=== PATIENT | male | born 1950 | race Caucasian/White ===

== ENCOUNTER 2017-01-22 09:33 | Outpatient (CLI) | payer MEDICARE, BC ==
--- NOTE | 2017-01-22 14:27 | MRI ---
MRI BRAIN NONCONTRAST: HISTORY: 66-year-old male with R46.89 behavioral change. FINDINGS: The ventricles are normal in size and configuration. There is no restricted diffusion, midline shift or any other mass effect, recent intraaxial hemorrhage, or extraaxial fluid collection. 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 On the FLAIR sequence, t here is an approximately 0.8 x 1.8 cm focally heterogeneously hyperintense lesion in the left frontal bone, in the marrow cavity, mildly focally expanding that portion of the bone. It is inconspicuous a nd difficult to distinguish from the contralateral right frontal bone on the T2 WI and T1 WI, mainly because it is hyperintense on those sequences, the same as normal fatty bone marrow signal. However, this lesion is conspicuous on the FLAIR sequence. There appear to be trabecular markings within this that suggests that it could be a hemangioma of bone (venous malformation of bone). It does not violat e the anterior or posterior cortical bone. It causes magnetic susceptibility artifact, as demonstrate d on the SWI sequence and the diffusion weighted sequence (DWI). IMPRESSION: 1. Mild chronic ischemic white matter changes. 2. Otherwise negative. 3. Intraosseous lesion within the marrow cavity of the left frontal bone. This is favored to be a risa ign entity such as a hemangioma of bone with atypical signal characteristic. Paget's disease, fibrous dysplasia, and metastatic lesions are the other, less likely possibilities. Recommend further evalua tion with Nuclear Medicine whole body bone scan to further evaluate this particular lesion and to [facility] [place] [facility] for any potential other lesions remotely elsewhere in the skeleton. Also, a noncontrast CT of e brain may be useful. skip POS: DINH
== END 2017-01-22 09:34 | disposition home or self-care (01) ==
LOC: TBSIIMAG 09:33
PROVIDERS: ATTEND Psychiatry & Neurology Neurology
DX: R46.89 Other symptoms and signs involving appearance and behavior (principal); M89.9 Disorder of bone, unspecified; I67.82 Cerebral ischemia
CPT/HCPCS: 70551

== ENCOUNTER 2017-02-27 08:31 | Outpatient (CLI) | payer MEDICARE, BC ==
--- NOTE | 2017-02-27 14:12 | NM ---
WHOLE BODY BONE SCAN: HISTORY: A 66-year-old male with disorder of bone, unspecified. Frontal bone lesion found on the MRI brain on 01/22/2017. COMPARISON: Bone scan dated 02/01/2016. CORRELATION: MRI brain without contrast dated 01/22/2017. RADIOPHARMACEUTICAL: Technetium 99m MDP 33 millicuries injected intravenously. FINDINGS: Degenerative changes are seen in the shoulders, acromioclavicular joints, elbows, wrists, knees, ankl es, and feet. Increased uptake in the sternum was seen on the previous exam and is consistent with a history of a previous fracture. No other abnormal areas of tracer localization are see, including t he left frontal bone. There are postop changes of left hip arthroplasty. Foci of mildly increased u ptake in the lumbar spine are also consistent with degenerative changes. Tracer excretion through th e kidneys is within normal limits. IMPRESSION: No evidence of osseous metastatic disease. POS: DINH
== END 2017-02-27 08:32 | disposition home or self-care (01) ==
LOC: NM 08:31
PROVIDERS: ATTEND Psychiatry & Neurology Neurology
DX: M89.9 Disorder of bone, unspecified (principal)
CPT/HCPCS: 78306; A9503

== ENCOUNTER 2017-05-16 08:26 | Outpatient (CLI) | payer MEDICARE, BC ==
[2017-05-16] MEDS ORDERED: Iopamidol 370 76% 100 ML VIAL ONE (10:05)
== END 2017-05-16 08:27 | disposition home or self-care (01) ==
LOC: BICCT 08:26
PROVIDERS: ATTEND Internal Medicine Gastroenterology
DX: K57.92 Diverticulitis of intestine, part unspecified, without perforation or abscess without bleeding (principal); K59.00 Constipation, unspecified; K57.30 Diverticulosis of large intestine without perforation or abscess without bleeding; D18.03 Hemangioma of intra-abdominal structures
CPT/HCPCS: 74177

== ENCOUNTER 2018-10-16 16:32 | Emergency (ER) | payer MEDICARE, BC ==
[~2018-10-16 16:32] MED LIST: ISOVUE-370 76%-LOCM 1 ML ONE; Iopamidol 370 76% 50 ML VIAL FS ONE
[2018-10-16 17:05] LABS: #Basophils 0.1 thou/uL (0.0-0.2); #Eosinphils 0.1 thou/uL (0.0-0.7); #Lymphocytes 3.7 thou/uL (1.20-3.40); #Monocytes 1.5 thou/uL (0.11-0.59); #Neutrophils 9.6 thou/uL (1.40-6.50); %Basophils 0.7 % (0.0-1.0); %Eosinophils 0.4 % (0.0-10.0); %Lymphocytes 24.7 % (21.0-51.0); %Monocytes 10.3 % (0.0-10.0); Hemoglobin 15.5 g/dL (14.0-18.0); Mean Corpuscular HGB CONC 34.9 g/dL (32.0-36.0); Mean Corpuscular Hemoglobin 34.5 pg (27.0-31.0); Mean Corpuscular Volume 98.9 fL (78.0-98.0); Mean Platelet Volume 6.1 fL (7.4-10.4); Platelet Count 272 thou/uL (130-400); RBC Distribution Width 11.6 % (11.5-14.5)
[2018-10-16 17:28] LABS: ALT (SGPT) 14 U/L (8-55); AST (SGOT) 15 U/L (5-34); Albumin 4.4 g/dL (3.4-4.8); Alkaline Phosphatase 71 U/L (40-150); Anion Gap 13 mmol/L (10-20); BUN (Urea Nitrogen) 11 mg/dL (8.4-25.7); Bilirubin, Total 1.3 mg/dL (0.2-1.2); Calc. Creatinine Clearance 0 mL/min (70-130); Carbon Dioxide 27 mmol/L (23-31); Chloride 103 mmol/L (98-107); Estimated GFR-MDRD 80; Globulin 3.5 g/dL (2.4-3.5); Glucose 88 mg/dL (80-115); Potassium 4.6 mmol/L (3.5-5.1); Protein, Total 7.9 g/dL (5.8-8.1); Sodium 138 mmol/L (136-145)
[2018-10-16 17:40] LABS: Bacteria/HPF None Seen HPF (None Seen); Bilirubin Negative (Negative); Blood, Urine Negative (Negative); Clarity Clear (Clear); Glucose, Urine (Dipstick) Normal (Negative); Leukocyte 25 Leu/uL (Negative); Nitrite Negative (Negative); Protein, Urine (Dipstick) Negative (Neg-Trace); RBC/HPF 0-3 HPF (0-3); Squamous Epithelial None Seen HPF (0-3); Urobilinogen Normal mg/dL (Less than 2); WBC/HPF 0-3 HPF (0-3)
[2018-10-16] MEDS ORDERED: Morphine 4 MG/ML VIAL ONE (17:58)
[2018-10-16] MEDS ORDERED: Ondansetron PF 4 MG/2 ML Vial ONE (17:58)
[2018-10-16] MEDS ORDERED: metroNIDAZOLE 500 MG/100 ML BAG ONE (19:05)
[2018-10-16] MEDS ORDERED: Cefepime 2 GM VIAL ONE (19:06)
--- NOTE | 2018-10-16 19:40 | CT ---
CT OF THE ABDOMEN AND PELVIS WITH IV CONTRAST INDICATION: Abdominal pain with concern for bowel perforation COMPARISON: Prior CT abdomen and pelvis dated June 17, 2018 from [facility] FINDINGS: ABDOMEN: Lung bases: Clear Liver: No focal lesion. Gallbladder: Normal appearing. Pancreas: Normal. Adrenal glands: Normal. Spleen: Normal. Kidneys: Normal. Retroperitoneum of the upper abdomen: No lymphadenopathy or free fluid is identified. Pelvis: Small and large bowel: There is wall thickening and pericolonic inflammatory stranding involving the sigmoid colon, slightly more pronounced than on the prior. No drainable fluid collection is evident. No free air is grossly evident to suggest full-thickness perforation Bladder: Normal. Rectal and perirectal soft tissues:Normal. Reproductive structures: Normal. Free fluid in pelvis: Minimal to mild free fluid Lymphadenopathy pelvis: No lymphadenopathy is evident. Osseous structures: Left total hip prosthesis. There is scattered degenerative and osteoarthritic kyra nge present. No acute fracture or subluxation demonstrated. IMPRESSION: 1. Noncomplicated sigmoid diverticulitis
== END 2018-10-16 21:55 | disposition home or self-care (01) ==
LOC: ERS 16:32
DX: K57.32 Diverticulitis of large intestine without perforation or abscess without bleeding (principal); I10 Essential (primary) hypertension; E78.5 Hyperlipidemia, unspecified; F41.9 Anxiety disorder, unspecified; Z79.899 Other long term (current) drug therapy
CPT/HCPCS: 36415; 74177; 80053; 81003; 81015; 83605; 83690; 85025; 87040; 96361; 96365; 96367; 96375; J0692; J2270; J2405; Q9966; Q9967